=== PATIENT | female | born 1995 | race Asian ===

== ENCOUNTER → 2023-04-15 10:49 | Outpatient (REF) | payer BC, SELFPAY ==
[2023-04-15 19:47] LABS: Hepatitis B Surface Antigen Negative (Negative)
[2023-04-15 20:05] LABS: Hepatitis B Core Ab, Total Negative (Negative); Hepatitis C Antibody Negative (Negative)
[2023-04-16 18:06] LABS: HIV Combo Reactive (Negative)
[2023-04-17 21:10] LABS: HSV 1 Subtype by PCR Not Detected; HSV 2 Subtype by PCR Not Detected; Herpes Simplex Source Plasma
[2023-04-19 01:14] LABS: HIV Serologic Interpretation HIV Abs Neg; HIV-1 Antibody Negative (Negative); HIV-2 Antibody Negative (Negative)
== END ==
LOC: REG 10:49
PROVIDERS: ATTENDING PHYSICIAN Family Medicine
DX: Z11.3 Encounter for screening for infections with a predominantly sexual mode of transmission (principal)
CPT/HCPCS: 36415; 86701; 86702; 86704; 86803; 87340; 87389; 87529

== ENCOUNTER → 2024-02-29 11:13 | Outpatient (REF) | payer BC, SELFPAY ==
[2024-02-29 15:22] LABS: ALT (SGPT) 18 U/L (0-35); AST (SGOT) 21 U/L (14-36); Albumin 4.7 g/dl (3.5-5.0); Alkaline Phosphatase 48 U/L (38-126); Blood Urea Nitrogen 16 mg/dl (7-17); Calcium 9.2 mg/dl (8.4-10.2); Carbon Dioxide 20 mmol/L (22-30); Chloride 103 mmol/L (98-107); Glucose 93 mg/dl (70-99); Potassium 4.4 mmol/L (3.5-5.1); Sodium 136 mmol/L (135-145); Total Bilirubin 0.6 mg/dl (0.2-1.3); Total Protein 7.7 g/dl (6.3-8.2); eGFR > 60.00
[2024-02-29 15:26] LABS: % Basophils 1.2 % (0-2); % Eosinophils 1.7 % (0-6); % Immature Granulocytes 0.3 % (0-0.5); % Lymphocytes 27.7 % (20.5-51.1); % Monocytes 6.6 % (1.7-9.3); % Neutrophils 62.5 % (42.2-75.2); Absolute Basophils 0.1 10^3/uL (0-0.2); Absolute Eosinophils 0.1 10^3/uL (0-0.7); Absolute Lymphocytes 1.9 10^3/uL (1.2-3.4); Absolute Monocytes 0.5 10^3/uL (0.1-0.6); Absolute Neutrophils 4.3 10^3/uL (1.4-6.5); Hematocrit 42.2 % (37.0-47.0); Hemoglobin 13.8 g/dL (12.0-16.0); Mean Corp Hgb Conc. 32.7 g/dL (33.0-37.0); Mean Corpuscular Hgb 30.7 pg (27.0-31.0); Mean Platelet Volume 10.2 fL (7.4-10.4); Nucleated Red Blood Cells % 0 %; Platelet Count 308 10^3/uL (130-400); Red Blood Cell Count 4.49 10^6/uL (4.20-5.40); Red Cell Dist. Width 12.4 % (11.5-14.5); White Blood Cell Count 6.9 10^3/uL (4.8-10.8)
== END ==
LOC: HWLAB 11:13
PROVIDERS: ATTENDING PHYSICIAN Family Medicine
DX: M54.16 Radiculopathy, lumbar region (principal); R10.31 Right lower quadrant pain
CPT/HCPCS: 36415; 72110; 80053; 85025

== ENCOUNTER → 2024-03-13 12:00 | Outpatient (REF) | payer BC, SELFPAY | LOC: RAD 12:00 | PROVIDERS: ATTENDING PHYSICIAN Family Medicine | DX: R10.31 Right lower quadrant pain (principal) | CPT/HCPCS: 74178; Q9967 ==

== ENCOUNTER → 2024-11-23 16:26 | Outpatient (REF) | payer BC, SELFPAY ==
[2024-11-23 17:48] LABS: Urine Character Clear (Clear)
[2024-11-23 18:07] LABS: ALT (SGPT) 20 U/L (0-35); AST (SGOT) 21 U/L (14-36); Albumin 4.7 g/dl (3.5-5.0); Alkaline Phosphatase 59 U/L (38-126); Blood Urea Nitrogen 13 mg/dl (7-17); Calcium 9.4 mg/dl (8.4-10.2); Carbon Dioxide 25 mmol/L (22-30); Chloride 102 mmol/L (98-107); Glucose 78 mg/dl (70-99); Potassium 4.2 mmol/L (3.5-5.1); Sodium 135 mmol/L (135-145); Total Protein 7.8 g/dl (6.3-8.2); eGFR > 60.00
[2024-11-23 18:09] LABS: C-Reactive Protein < 5.00 mg/L (0.0-10.00)
[2024-11-25 23:36] LABS: CCP Antibody IgG/IgA 3 Units (0-19)
[2024-11-26 01:46] LABS: ANA, IgG Reflex to HEp-2 None Detected (None Detected)
== END ==
LOC: REG 16:26
PROVIDERS: ATTENDING PHYSICIAN Internal Medicine Rheumatology; FAMILY PHYSICIAN Family Medicine
DX: M25.551 Pain in right hip (principal); M79.18 Myalgia, other site
CPT/HCPCS: 36415; 73523; 80053; 81003; 82550; 83516; 85652; 86038; 86140; 86160; 86200; 86235; 86430